=== PATIENT | female | born 1950 | race African-American/Black ===

== ENCOUNTER → 2021-05-20 | Outpatient (CLI) | payer MEDICARE ==
[~2021-05-20] MED LIST: AMLO-186 PO; BUTA1CAP58 PO; CARV12.511 PO; GADOTERATE 7.5 MMOL/15ML VIAL. IVP ONE; HYDR-2868 PO; LEVO50TA5 PO; LIPITOR80 MG PO; METH5TAB4 PO
[2021-05-20 15:22] LABS: CREATININE 1.1 mg/dL (0.6-1.0); GFR 59.1
--- NOTE | 2021-05-20 15:45 | NUR ---
Pt here for MRI of the brain, pt has [employer] pacemaker. [employer] rep here to reprogram pacemaker. Pt monitored throughout, tolerated MRI without difficulty, VSS. Post MRI, pacemaker returned to prev settings by rep. MAGGIE [place]
--- NOTE | 2021-05-20 17:01 | RAD ---
EXAMINATION: Magnetic resonance imaging (MRI) of the brain and brainstem without and with contrast 05/20/2021 2:24 PM HISTORY: Chronic migraine. Adenoma. The pituitary TECHNIQUE: Multiplanar multi-weighted MRI of the brain and brainstem was performed without and with i ntravenous contrast using the general brain protocol. Contrast information: 12 mL Gadolinium based contrast COMPARISON: None available. FINDINGS: There is a 1.7 x 1.5 x 2.1 cm mass within the sella with suprasellar extension. This is inseparable f rom the pituitary gland and most compatible with a pituitary macroadenoma. There is mass effect on op tic chiasm. There is no extension to the sphenoid sinus. No cavernous sinus involvement (less than 18 0 degrees involvement). There is homogeneous enhancement. There is deviation of the infundibulum to t he left. The scalp and calvarium are normal. The superior sagittal sinus demonstrates normal venous flow. The corpus callosum is normal in shape and signal intensity. The posterior fossa is unremarkable. The b rainstem and craniocervical junction are unremarkable. Diffusion weighted images reveal no hyperintensities to suggest acute cerebral infarction. The suscep tibility weighted sequences reveal no evidence of acute or chronic hemorrhage. The ventricles are nor mal in size and position without evidence of hydrocephalus. The paranasal sinuses are normal. The visualized portions of the mastoids are unremarkable. The orbi ts appear normal. Normal flow voids are demonstrated in the carotid arteries and basilar artery. IMPRESSION: 1. Sellar based mass with suprasellar extension measures 1.7 x 1.5 x 2.1 cm compatible with pituitary macroadenoma. There is associated mass effect on optic chiasm which is displaced superiorly. Infundi bulum is deviated to the left. No definite cavernous sinus involvement. Electronically signed by: Mary Anne Foster MD (05/20/2021 4:58 PM) [id number]
== END ==
LOC: MRI 14:04
PROVIDERS: ATTEND Psychiatry & Neurology Neurology with Special Qualifications in Child Neurology
DX: D35.2 Benign neoplasm of pituitary gland (principal); G43.719 Chronic migraine without aura, intractable, without status migrainosus; M26.53 Deviation in opening and closing of the mandible
CPT/HCPCS: 36415; 70553; 82565; 84520; A9575